=== PATIENT | female | born 1955 | race Asian ===

== ENCOUNTER 2018-10-22 04:52 | Emergency (ER) | payer MEDICAID, OTHER ==
[~2018-10-22] VITALS: Ht 157.5 cm; Wt 62.7 kg
[~2018-10-22 04:52] MED LIST: ASPI-1182 PO
[2018-10-22] MEDS ORDERED: HYDROCODONE/ACETAMINOPHEN 5-325 MG TABLET PO ONE (05:00)
[2018-10-22] MEDS ORDERED: LIDOCAINE 1% 10 ML VIAL INJ ONE (05:00)
[2018-10-22] MEDS ORDERED: PERTUSS(ACELL),DIPH,TET VAC/PF 0.5 ML VIAL IM ONE (05:00)
[2018-10-22] MEDS ORDERED: SODIUM CHLORIDE 0.9% 250 ML IRRIG SOLUTION BOTTLE IRRIG ONE (05:00)
[2018-10-22] MEDS ORDERED: ASCO500 PO (05:06)
[2018-10-22] MEDS ORDERED: LOSA1TAB42 PO (05:06)
[2018-10-22 05:59] VITALS: BP 175/91
== END 2018-10-22 06:33 | disposition home or self-care (01) ==
LOC: EMS 04:55
DX: S61.412A Laceration without foreign body of left hand, initial encounter (principal); I10 Essential (primary) hypertension; W25.XXXA Contact with sharp glass, initial encounter; Y93.89 Activity, other specified; Y92.89 Other specified places as the place of occurrence of the external cause; Y99.8 Other external cause status
CPT/HCPCS: 12002; 90471; 90715; 99283; J3490